=== PATIENT | female | born 1995 | race Caucasian/White ===

== ENCOUNTER → 2019-01-03 | Outpatient (CLI) | payer OTHER ==
[~2019-01-03] MED LIST: ACE3 PO; CIPDEXPT OT
[2019-01-03 10:43] LABS: PLATELET COUNT, AUTOMATED 244 K/uL (150-450)
--- NOTE | 2019-01-03 11:01 | EKG ---
FACILITY: [facility] PATIENT NAME: GEORGETTE DAO : [id number] MR: [id number] V: [id number] EXAM DATE: ORDERING PHYSICIAN: JEANINE VALLADARES TECHNOLOGIST: YANDY Test Reason : PHYSICAL CHECK UP Blood Pressure : / mmHG Vent. Rate : 071 BPM Atrial Rate : 071 BPM P-R Int : 104 ms QRS Dur : 094 ms QT Int : 388 ms P-R-T Axes : 010 051 018 degrees QTc Int : 421 ms Sinus rhythm with short UT Otherwise normal ECG No previous ECGs available Confirmed by NORMA COSBY ([id number]) on 01/03/2019 1:21:32 PM Referred By: BLAINE Confirmed By:NORMA COSBY
--- NOTE | 2019-01-03 11:35 | RADIOLOGY IMAGING REPORT ---
FACILITY: [facility] PATIENT NAME: Jeri Godfrey : 1995 MR: [id number] V: [id number] EXAM DATE: ORDERING PHYSICIAN: BRENDON VALLADARES TECHNOLOGIST: Location: Patient: Jeri Godfrey : 1995 Visit/Account:[id number] Date of Sevice: 01/03/2019 CHEST PA LAT INDICATION: Chest pain COMPARISON: None available FINDINGS: Heart size within normal limits. There is no focal infiltrate or lobar consolidation. There is no pneumothorax or pleural effusion. IMPRESSION: 1. No acute cardiopulmonary process. Report Dictated By: Jaylon Sullivan at 01/03/2019 11:28 AM Report E-Signed By: Jaylon Sullivan at 01/03/2019 11:28 AM WSN:[id number]
== END ==
LOC: LAB 10:09
PROVIDERS: ATTEND Nurse Practitioner Family
DX: I49.9 Cardiac arrhythmia, unspecified (principal); R07.9 Chest pain, unspecified
CPT/HCPCS: 36415; 71046; 82040; 82247; 82310; 82374; 82435; 82565; 82947; 84075; 84132; 84155; 84295; 84443; 84450; 84460; 84520; 85025; 93005